=== PATIENT | female | born 1990 | race Caucasian/White ===

== ENCOUNTER 2020-11-21 22:24 | Inpatient (IN) ==
[2020-11-21] MEDS ORDERED: ONDANSETRON 4 MG/2 ML VIAL IV PRN (22:38)
[2020-11-21] MEDS ORDERED: LACTATED RINGERS 1,000 ML IV ONE (22:38)
[2020-11-21 23:05] LABS: Basophils # 0.1 10*3/uL (0.0-0.2); Basophils % 0.3 % (0.0-0.8); Eosinophils # 0.2 10*3/uL (0.0-0.87); Eosinophils % 1.5 % (0.00-10.9); Hematocrit 35.8 VOL% (35.7-47.0); Hemoglobin 11.3 GM/DL (12.0-16.0); Immature Granulocytes % 0.6 %; Lymphocytes % 18.7 % (21.3-54.2); Mean Corpuscular HGB Conc 31.6 GM/DL (32-36); Mean Corpuscular Volume 85.4 FL (87-102); Monocytes % 6.6 % (1.7-12.7); Neutrophils % 72.3 % (38.7-73.9); Platelet Count 295 T/CUMM (130-400); Red Blood Count 4.19 MC/CUMM (3.8-5.5); Red Cell Distribution Width 13.8 % (9.3-17.3); White Blood Count 16.2 T/CUMM (4-12)
[2020-11-21 23:22] LABS: Alanine Aminotransferase 14 U/L (13-56); Albumin 2.7 G/DL (3.4-5.0); Alkaline Phosphatase 124 U/L (45-117); Aspartate Amino Transferase 14 U/L (0-37); Bilirubin,Total < 0.39 MG/DL (0.20-1.00); Blood Urea Nitrogen 10 MG/DL (7-18); Calcium 8.7 MG/DL (8.5-10.1); Carbon Dioxide 22 MMOL/L (21-32); Estimated Glom Filtration Rate 125 ML/MIN; Glucose 87 MG/DL (74-106); Potassium 3.9 MMOL/L (3.5-5.1); Sodium 136 MMOL/L (136-145); Total Protein 6.9 G/DL (6.4-8.2)
[2020-11-21 23:55] LABS: Bilirubin,Direct < 0.050 MG/DL (0.0-0.20)
[2020-11-21 23:58] LABS: INR 0.8; Partial Thromboplastin Time 26.8 SECS (23.9-33.8)
[2020-11-21 23:59] LABS: PT Patient Result 9.5 SECS (10.5-12.0)
[2020-11-22 00:24] LABS: Protein/Creatinine Ratio,Urine 0.3 RATIO
[2020-11-22] MEDS ORDERED: MEPERIDINE 50 MG/1 ML VIAL IV PRN (02:36)
[2020-11-22] MEDS ORDERED: diphenhydrAMINE 50 MG/1 ML VIAL IV PRN ×2 (04:50)
[2020-11-22] MEDS ORDERED: NALOXONE 0.4 MG/ML VIAL IV PRN (04:50)
[2020-11-22] MEDS ORDERED: hydrOXYzine HCL 25 MG/1 ML VIAL IM PRN (04:50)
[2020-11-22] MEDS ORDERED: PROMETHAZINE 25 MG/1 ML VIAL IM ONE (04:50)
[2020-11-22] MEDS ORDERED: ONDANSETRON 4 MG/2 ML VIAL IV ONE (04:50)
[2020-11-22] MEDS ORDERED: ePHEDrine 50 MG/ML VIAL IV PRN (04:50)
[2020-11-22] MEDS ORDERED: CITRIC ACID/SODIUM CITRATE 30 ML UDCUP PO ONE (04:50)
[2020-11-22] MEDS ORDERED: FAMOTIDINE 20 MG/2 ML VIAL IV ONE (04:50)
[2020-11-22] MEDS ORDERED: fentaNYL 2 MCG/ROPIV 0.2% EPID 100 ML EPIDURAL SCH (05:00)
[2020-11-22] MEDS: LACTATED RINGERS 1,000 ML IV SCH ×2 (05:22→07:04)
[2020-11-22] MEDS ORDERED: TERBUTALINE 1 MG/1 ML VIAL ONE (06:49)
[2020-11-22] MEDS: TERBUTALINE 1 MG/1 ML VIAL SUBCUT PRN ×2 (07:08→08:37)
[2020-11-22] MEDS ORDERED: ceFAZolin 2,000 MG/50 ML DUPLEX IV ONE (07:41)
[2020-11-22] MEDS ORDERED: OXYTOCIN/LR 20 UNIT/1,000 ML BAG IV ONE ×2 (07:42→09:54)
[2020-11-22] MEDS ORDERED: miSOPROStoL 200 MCG TABLET ONE (08:34)
[2020-11-22] MEDS ORDERED: CARBOPROST TROMETHAMINE 250 MCG/ML AMP IM ONE (08:34)
[2020-11-22] MEDS ORDERED: METHYLERGONOVINE 0.2 MG/1 ML AMP ONE (08:34)
[2020-11-22] MEDS ORDERED: LIDOCAINE MPF 2% /EPI 20 ML VIAL ONE (08:57)
[2020-11-22] MEDS ORDERED: ONDANSETRON 4 MG/2 ML VIAL ONE (08:58)
[2020-11-22 09:41] LABS: Cord Arterial Blood HCO3 21.7 MMOL/L
[2020-11-22 09:43] LABS: Cord Venous Blood PCO2 46.9 MMHG; Cord Venous Blood PO2 19.5
[2020-11-22 09:45] LABS: Bilirubin,Urine Negative (Negative); Blood, Urine Small mg/dL (Negative); Glucose,Urine (UA) Negative (Negative); Ketones,Urine Negative (Negative); Mucus,Urine Occasional /LPF (Occasional); Nitrite,Urine Negative (Negative); Protein,Urine Negative; RBC,Urine 7 /HPF (0-4); Squamous Epithelial Cell,Urine Occasional /HPF (0-10); Urine Appearance CLEAR (Clear); Urine Color Yellow (Yellow); Urine Specific Gravity 1.012 (1.001-1.035); Urine Urobilinogen < 2.0 EU/DL (0.2-1.0)
[2020-11-22] MEDS ORDERED: LANOLIN 50% CREAM 0.3 OZ TUBE TOP PRN (09:54)
[2020-11-22] MEDS ORDERED: BISACODYL 10 MG SUPP RECTAL PRN (09:54)
[2020-11-22] MEDS ORDERED: BENZOCAINE 20%/MENTHOL 0.5% SPRAY 56 GM CAN TOP PRN (09:54)
[2020-11-22] MEDS ORDERED: MEASLES/MUMPS/RUBELLA VACCINE 0.5 ML VIAL SUBCUT ONE (09:54)
[2020-11-22] MEDS ORDERED: WITCH HAZEL PADS 100/JAR TOP PRN (09:54)
[2020-11-22] MEDS ORDERED: ONDANSETRON 4 MG/2 ML VIAL IV PRN (09:54)
[2020-11-22] MEDS ORDERED: HYDROCORTISONE 2.5% RECTAL CREAM 30 GM TUBE TOP PRN (09:54)
[2020-11-22] MEDS ORDERED: ACETAMINOPHEN 325 MG TABLET PO PRN (09:54)
[2020-11-22] MEDS ORDERED: DIPH/TET/ACEL PERT BOOSTER VACCINE 0.5 ML VIAL IM ONE (09:54)
[2020-11-22] MEDS ORDERED: RHO(D) IMMUNE GLOBULIN 300 MCG SYRINGE IM ONE (09:54)
[2020-11-22] MEDS ORDERED: PHENYLEPHRINE 1 MG/10 ML SYRINGE IV ONE (10:01)
[2020-11-22] MEDS ORDERED: ACETAMINOPHEN INJ 1,000 MG/100 ML VIAL IV ONE (10:01)
[2020-11-22] MEDS: HYDROmorphone 2 MG/1 ML VIAL IV PRN ×3 (11:15→21:16)
[2020-11-22] MEDS: ACETAMINOPHEN 500 MG TABLET PO SCH ×2 (16:32→21:48)
[2020-11-22] MEDS: DOCUSATE SODIUM 100 MG CAPSULE PO SCH (21:19)
[2020-11-22] MEDS: IBUPROFEN 800 MG TABLET PO PRN (21:49)
[2020-11-22] MEDS ORDERED: FUROSEMIDE 40 MG/4 ML VIAL IV ONE (22:35)
[2020-11-23] MEDS: ACETAMINOPHEN 500 MG TABLET PO SCH (04:45)
[2020-11-23] MEDS: IBUPROFEN 800 MG TABLET PO PRN ×4 (04:57→21:54)
[2020-11-23 06:19] LABS: Basophils % 0.2 % (0.0-0.8); Eosinophils # 0.2 10*3/uL (0.0-0.87); Eosinophils % 1.5 % (0.00-10.9); Hematocrit 31.6 VOL% (35.7-47.0); Hemoglobin 10.2 GM/DL (12.0-16.0); Immature Granulocytes % 0.6 %; Immature Granulocytes Absolute 0.08 #; Lymphocytes # 2.1 10*3/uL (1.4-4.0); Lymphocytes % 15.7 % (21.3-54.2); Mean Corpuscular HGB Conc 32.3 GM/DL (32-36); Mean Corpuscular Volume 85.6 FL (87-102); Monocytes % 6.4 % (1.7-12.7); Neutrophils % 75.6 % (38.7-73.9); Platelet Count 227 T/CUMM (130-400); Red Blood Count 3.69 MC/CUMM (3.8-5.5); Red Cell Distribution Width 13.8 % (9.3-17.3)
[2020-11-23] MEDS: DOCUSATE SODIUM 100 MG CAPSULE PO SCH ×2 (10:24→21:54)
[2020-11-24] MEDS: IBUPROFEN 800 MG TABLET PO PRN ×2 (03:55→11:30)
[2020-11-24] MEDS ORDERED: FUROSEMIDE 40 MG/4 ML VIAL IV ONE (07:49)
[2020-11-24] MEDS: DOCUSATE SODIUM 100 MG CAPSULE PO SCH (08:40)
[2020-11-24 09:28] VITALS: BP 126/67
== END 2020-11-24 12:25 | disposition home or self-care (01) | DRG 788 ==
LOC: N.LDOUT 22:24 → N.LD 22:25 → N.OB 11-22 13:06
PROVIDERS: ADMIT Specialist; ATTEND Specialist
PROC: LDCSECT (ICD-10-PCS; 2020-11-22 09:00)